=== PATIENT | male | born 1955 | race Caucasian/White ===

== ENCOUNTER 2016-06-05 20:45 | Emergency (ER) | payer SELFPAY ==
[~2016-06-05] VITALS: Ht 182.9 cm; Wt 78.0 kg
[2016-06-05 21:29] VITALS: Ht 182.9 cm; Wt 78.0 kg
[2016-06-05] MEDS ORDERED: KETOROLAC 60 MG INJ IM STA (23:42)
[2016-06-06 00:02] LABS: URINE BLOOD (Dip) POC 3+ (NEGATIVE)
[2016-06-06] MEDS ORDERED: CEFTRIAXONE 1 GM/50 ML (PMX) 50 ML IVPB ONE (00:30)
[2016-06-06] MEDS ORDERED: SOD CHLORIDE 0.9% 1,000 ML IV ONE (01:00)
[2016-06-06] MEDS ORDERED: ACET500C5 PO (01:17)
[2016-06-06] MEDS ORDERED: CIPR500T4 PO (01:17)
[2016-06-06 01:59] VITALS: BP 119/60; PULSE 74; RESP 16; TEMP 98.4
--- NOTE | 2016-06-06 07:51 | ERD ---
ER Documentation Chief Complaint Date/Time DATE: 06/06/16 TIME: 07:42 Chief Complaint blood in urine 3 days with back pain HPI 61-year-old male brought in by his girlfriend complaining of blood in the urine and back pain 4 days. Patient reports subjective fever and chills. He also has dysuria, urinary frequency, and urgency. Denies abdominal pain, vomiting, or diarrhea. Denies history of kidney stones, or other medical history. ROS All systems reviewed and are negative except as per history of present illness. Medications Home Meds Active Scripts Acetaminophen* (Tylophen*) 500 Mg Capsule, 1 CAP PO Q6H Y for PAIN AND OR ELEVATED TEMP, #20 CAP Prov:SHANTANU MATTHEWS. RENAL DIETITIAN 06/06/16 Ciprofloxacin Hcl* (Ciprofloxacin Hcl*) 500 Mg Tablet, 500 MG PO BID for 14 Days , TAB Prov:SHANTANU MATTHEWS. RENAL DIETITIAN 06/06/16 Allergies Allergies: Coded Allergies: No Known Allergy (Unverified , 06/06/16) PMhx/Soc Hx Alcohol Use: Yes Hx Substance Use: No Hx Tobacco Use: Yes Smoking Status: Former smoker Physical Exam Vitals Vital Signs Date Time Temp Pulse Resp B/P Pulse Ox O2 Delivery O2 Flow Rate FiO2 06/06/16 01:59 98.4 74 16 119/60 99 06/05/16 21:29 100.3 82 20 126/67 99 Physical Exam General impression: Well-developed, well-nourished. Alert, oriented, in no acute distress Head: Normocephalic, atraumatic. Eyes: PERRL, EOM normal. Sclerae are normal. Conjunctiva not injected. Neck: Supple, nontender. No lymphadenopathy. No nuchal rigidity. Respiration: Normal respiratory effort. Lungs clear to auscultate bilaterally. No wheezes, rales or rhonchi. Cardiovascular: Regular rate and rhythm. No murmurs or extra heart sounds. Abdomen: Abdomen normal to inspection. Nontender. No masses or organomegaly. Bowel sounds normal. Back: Normal to inspection. No midline spine tenderness. Right CVA tenderness. Neuro: Mental status normal, speech normal. ASSISTANT SALES MANAGER grossly intact. Skin: Normal turgor. No rash or lesions. Psych: Normal mood and affect. Results 24 hrs Laboratory Tests Test 06/06/16 00:03 Bedside Urine pH (LAB) 5.5 Bedside Urine Protein (LAB) 2+ Bedside Urine Glucose (UA) Negative Bedside Urine Ketones (LAB) Negative Bedside Urine Blood 3+ Bedside Urine Nitrite (LAB) Positive Bedside Urine Leukocyte Esterase (L 2+ Current Medications Medications (Trade) Dose Ordered Sig/Raf Route PRN Reason Start Time Stop Time Status Last Admin Dose Admin Ketorolac Tromethamine 60 mg 60 mg ONCE STAT IM 06/05/16 23:42 06/05/16 23:44 DC 06/05/16 23:58 Ceftriaxone Sodium 50 ml @ 100 mls/hr ONCE ONCE IVPB 06/06/16 00:30 06/06/16 00:59 DC 06/06/16 00:26 Sodium Chloride (NS) 1,000 ml @ 1,000 mls/hr Q1H ONCE IV 06/06/16 01:00 06/06/16 01:59 DC 06/06/16 01:10 Procedures/MDM 61-year-old male presented ED urinary symptoms 4 days. Urine dip showed 2+ leukocyte, positive nitrite, 3+ blood, 2+ protein. Patient has a urinary tract infection. Given the patient has right CVA tenderness and fever, I think likely patient has pyelonephritis. Patient given 1 L normal saline bolus, and 1 g Rocephin IV piggyback in the ED. Toradol IM also given to the patient for pain fever. Patient is stable for discharge and outpatient management. Medical decision making shared with patient and family. Education provided to patient and family. Patient and family expressed understanding of the plan. Medications on discharge: Cipro, ibuprofen. Follow-up: Primary care provider in 2-3 days or return to ED if worse. Departure Diagnosis: Primary Impression: Pyelonephritis Condition: Good Patient Instructions: Pyelonephritis, Male (Adult) [facility] Usted se zhu hecho un examen mdico de control que le indica que no est en lazaro condicin que requiera tratamiento urgente en el Departamento de Emergencia. Un estudio ms profundo y el tratamiento de gimenez condicin pueden esperar sin ningn riesgo hasta que usted sea atendida/o en el consultorio de gimenez mdico o lazaro cl margarita. Es responsabilidad suya arreglar lazaro matilda para el seguimiento del dereje. MANEJO DE CONDICIONES NO URGENTES EN EL FUTURO 1) Si usted tiene un mdico de atencin primaria: Usted debera llamar a gimenez mdico de atencin primaria antes de venir al departamento de emergencia. Despus de las horas de consultorio, gimenez doctor o gimenez asociado/a est disponible por telfono. El mdico o enfermero de faiza en el servicio telefnico puede asesorarle por gregor medio para atender el problema, o dereje contrario se puede programar lazaro matilda. 2) Si usted no tiene un mdico de atencin primaria: Llame al mdico o clnica de referencia que aparece abajo chai las horas de consultorio para hacer lazaro matilda para que le vean. CLINICAS: [facility] [phone] [facility] [phone] [facility] [facility] [phone] [facility]. [facility] [phone] [facility]. [place] [phone] [facility]. [phone] Additional Instructions: Llame al doctor MAANA y anuja lazaro MATILDA PARA DENTRO DE 2-3 LINDER.Dgale a la secretaria que nosotros le instruimos hacer esta matilda.Avise o llame si gimenez condicin se empeora antes de la matilda. Regresa aqui si peor o no mejor. SHANTANU MATTHEWS. YOBANY Jun 06, 2016 07:51
== END 2016-06-06 02:00 | disposition home or self-care (01) ==
LOC: FTE 20:45
DX: N12 Tubulo-interstitial nephritis, not specified as acute or chronic (principal); Z87.891 Personal history of nicotine dependence
CPT/HCPCS: 81003; 87086; 96372; 96374; 99284; J0696; J1885; J7030

== ENCOUNTER 2016-12-02 18:15 | Inpatient (IN) | payer MEDICAID ==
[~2016-12-02] VITALS: Ht 177.8 cm; Wt 77.7 kg
[~2016-12-02 18:15] MED LIST: ACET500C5 PO; CIPR500T4 PO
[2016-12-02] MEDS ORDERED: SOD CHLORIDE 0.9% 1,000 ML IV STA (22:48)
[2016-12-02] MEDS ORDERED: HYDROmorphONE 1 MG/ML SYG IV STA (22:48)
[2016-12-02] MEDS ORDERED: ONDANSETRON 4 MG INJ IV STA (22:48)
[2016-12-02] MEDS ORDERED: PIPER-TAZO 3.375 GM IV (PMX) 100 ML IVPB STA (22:50)
[2016-12-02] MEDS ORDERED: CIPROFLOXACIN 400MG/D5W 200 ML IVPB STA (22:50)
[2016-12-02] MEDS ORDERED: IBUPROFEN 800 MG TAB PO ONE (23:00)
[2016-12-02] MEDS ORDERED: ONDANSETRON 4 MG INJ ONE (23:22)
[2016-12-02] MEDS ORDERED: PIPER-TAZO 3.375 GM IV (PMX) 100 ML ONE (23:23)
[2016-12-02] MEDS ORDERED: HYDROmorphONE 1 MG/ML SYG ONE (23:23)
[2016-12-02] MEDS ORDERED: CIPROFLOXACIN 400MG/D5W 200 ML ONE (23:23)
[2016-12-02] MEDS ORDERED: IBUPROFEN 800 MG TAB ONE (23:23)
[2016-12-02 23:54] LABS: BASOPHILS % 0.4 % (0.0-2.0); EOSINOPHILS % 0.2 % (0.0-7.0); HEMATOCRIT 42.7 % (42.0-52.0); HEMOGLOBIN 14.5 g/dl (14.0-18.0); LYMPHOCYTES # 0.7 10^3/ul (0.8-2.9); LYMPHOCYTES % 12.1 % (15.0-51.0); MEAN CORPUSCULAR HEMOGLOBIN 32.4 pg (29.0-33.0); MEAN CORPUSCULAR VOLUME 95.5 fl (82.0-101.0); MEAN PLATELET VOLUME 11.6 fl (7.4-10.4); MONOCYTE # 0.5 10^3/ul (0.3-0.9); MONOCYTES % 9.3 % (0.0-11.0); NEUTROPHIL # 4.4 10^3/ul (1.6-7.5); NEUTROPHILS % 77.6 % (39.0-77.0); PLATELET COUNT 177 10^3/UL (140-415); RED BLOOD COUNT 4.47 10^6/ul (4.70-6.10); RED CELL DISTRIBUTION WIDTH 13.6 % (11.5-14.5); WHITE BLOOD COUNT 5.6 10^3/ul (4.8-10.8)
[2016-12-03] VITALS (12 sets, daily range): BP systolic 93–135; BP diastolic 55–77; PULSE 57–76; RESP 16–20; TEMP 98.8; Ht 177.8 cm; Wt 77.7 kg
[2016-12-03 00:07] LABS: ALBUMIN 4.3 g/dl (3.3-4.9); ALBUMIN/GLOBULIN RATIO 1.1; BILIRUBIN,INDIRECT 0.2 mg/dl (0-1.1); BILIRUBIN,TOTAL 0.2 mg/dl (0.2-1.3); CREATININE 1.31 mg/dl (0.61-1.24); TOTAL PROTEIN 8.2 g/dl (6.1-8.1)
--- NOTE | 2016-12-03 01:01 | ERD ---
ER Documentation Chief Complaint Chief Complaint Fever flank pain HPI This is a 61-year-old male complains of day 2 of fever of 102 with pain in his right flank with mild pain in the left flank. Says he has nausea no vomiting and has had 2 episodes of watery diarrhea. No chest pain cough shortness of breath. He says he has some slight dysuria but no hematuria. Pain is constant dull and nothing makes it worse or better. No radiation ROS All systems reviewed and are negative except as per history of present illness. Medications Home Meds Active Scripts Acetaminophen* (Tylophen*) 500 Mg Capsule, 1 CAP PO Q6H Y for PAIN AND OR ELEVATED TEMP, #20 CAP Prov:SHANTANU MATTHEWS. GROUNDS CLEANER 06/06/16 Discontinued Scripts Ciprofloxacin Hcl* (Ciprofloxacin Hcl*) 500 Mg Tablet, 500 MG PO BID for 14 Days , TAB Prov:SHANTANU MATTHEWS. GROUNDS CLEANER 06/06/16 Allergies Allergies: Coded Allergies: No Known Allergy (Unverified , 12/02/16) PMhx/Soc Medical and Surgical Hx: pt denies Medical Hx, pt denies Surgical Hx Hx Alcohol Use: Yes (occassional) Hx Substance Use: No Hx Tobacco Use: No Smoking Status: Current some day smoker FmHx Family History: No coronary disease Physical Exam Vitals Vital Signs Date Time Temp Pulse Resp B/P Pulse Ox O2 Delivery O2 Flow Rate FiO2 12/03/16 03:36 98.8 67 16 109/68 97 Room Air 12/03/16 01:21 102.6 97 16 102/57 98 Room Air 12/02/16 22:23 92 16 126/62 98 Room Air 12/02/16 19:02 102.4 84 20 132/70 95 Physical Exam Const: Well-developed, well-nourished Head: Atraumatic, normocephalic Eyes: Normal Conjunctiva, PERRLA, EOMI, normal sclera, no nystagmus ENT: Normal External Ears, Nose and Mouth, moist mucus membranes. Neck: Full range of motion. No meningismus, no lymphadenopathy. Resp: Clear to auscultation bilaterally, no wheezing, rhonchi, rales Cardio: Regular rate and rhythm, no murmurs, S1 S2 present Abd: Soft, non tender x 4, non distended. Normal bowel sounds, no guarding or rebound, no pulsitile abdominal masses or bruits Skin: No petechiae or rashes, no ecchymosis , no maculopapular rash Back: Bilateral flank tenderness right greater than left Ext: No cyanosis, or edema, FROM x 4, normal inspection, neurovascularly intact x 4 Neur: Awake and alert, STR 5/5 x 4, sensation intact x 4, no focal findings, cerebellum intact Psych: Normal Mood and Affect Result Diagram: 12/02/16229912/02/162299 Results 24 hrs Laboratory Tests Test 12/02/16 23:00 12/03/16 00:45 White Blood Count 5.610^3/ul Red Blood Count 4.4710^6/ul Hemoglobin 14.5g/dl Hematocrit 42.7% Mean Corpuscular Volume 95.5fl Mean Corpuscular Hemoglobin 32.4pg Mean Corpuscular Hemoglobin Concent 34.0g/dl Red Cell Distribution Width 13.6% Platelet Count 05045^3/UL Mean Platelet Volume 11.6fl Neutrophils % 77.6% Lymphocytes % 12.1% Monocytes % 9.3% Eosinophils % 0.2% Basophils % 0.4% Nucleated Red Blood Cells % 0.0/100WBC Neutrophils # 4.410^3/ul Lymphocytes # 0.710^3/ul Monocytes # 0.510^3/ul Eosinophils # 0.010^3/ul Basophils # 0.010^3/ul Nucleated Red Blood Cells # 0.010^3/ul Sodium Level 139mmol/L Potassium Level 4.0mmol/L Chloride Level 99mmol/L Carbon Dioxide Level 29mmol/L Anion Gap 15 Blood Urea Nitrogen 15mg/dl Creatinine 1.31mg/dl Glucose Level 76mg/dl Calcium Level 9.0mg/dl Total Bilirubin 0.2mg/dl Direct Bilirubin 0.00mg/dl Indirect Bilirubin 0.2mg/dl Aspartate Amino Transf (AST/SGOT) 31IU/L Alanine Aminotransferase (ALT/SGPT) 39IU/L Alkaline Phosphatase 76IU/L Total Protein 8.2g/dl Albumin 4.3g/dl Globulin 3.90g/dl Albumin/Globulin Ratio 1.10 Urine Color YELLOW Urine Clarity SLIGHTLY CLOUDY Urine pH 5.0 Urine Specific [place] 1.027 Urine Ketones NEGATIVEmg/dL Urine Nitrite NEGATIVEmg/dL Urine Bilirubin NEGATIVEmg/dL Urine Urobilinogen NEGATIVEmg/dL Urine Leukocyte Esterase 3+Dorie/ul Urine Microscopic RBC 13/HPF Urine Microscopic WBC 155/HPF Urine Squamous Epithelial Cells FEW/HPF Urine Bacteria FEW/HPF Urine Mucus MODERATE/HPF Urine Hemoglobin NEGATIVEmg/dL Urine Glucose NEGATIVEmg/dL Urine Total Protein 1+mg/dl Current Medications Medications (Trade) Dose Ordered Sig/Raf Route PRN Reason Start Time Stop Time Status Last Admin Dose Admin Sodium Chloride (NS) 1,000 ml @ 1,000 mls/hr Q1H STAT IV 12/02/16 22:48 12/02/16 23:47 DC 12/02/16 23:43 Hydromorphone HCl (Dilaudid) 1 mg ONCE STAT IV 12/02/16 22:48 12/02/16 22:50 DC 12/02/16 23:43 Ondansetron HCl (Zofran Inj) 4 mg ONCE STAT IV 12/02/16 22:48 12/02/16 22:50 DC 12/02/16 23:43 Ibuprofen 800 mg 800 mg ONCE ONCE PO 12/02/16 23:00 12/02/16 23:01 DC 12/02/16 23:44 Piperacillin Sod/ Tazobactam Sod 100 ml @ 200 mls/hr ONCE STAT IVPB 12/02/16 22:50 12/02/16 23:19 DC 12/02/16 23:43 Ciprofloxacin/ Dextrose (Cipro Ivpb) 200 ml @ 200 mls/hr ONCE STAT IVPB 12/02/16 22:50 12/02/16 23:49 DC 12/03/16 00:17 Ondansetron HCl (Zofran Inj) 4 mg STK-MED ONCE .ROUTE 12/02/16 23:22 12/02/16 23:33 DC Ibuprofen (Motrin) 800 mg STK-MED ONCE .ROUTE 12/02/16 23:23 12/02/16 23:33 DC Hydromorphone HCl 1 mg 1 mg STK-MED ONCE .ROUTE 12/02/16 23:23 12/02/16 23:33 DC Piperacillin Sod/ Tazobactam Sod 100 ml @ ud STK-MED ONCE .ROUTE 12/02/16 23:23 12/02/16 23:33 DC Ciprofloxacin/ Dextrose (Cipro Ivpb) 200 ml @ ud STK-MED ONCE .ROUTE 12/02/16 23:23 12/02/16 23:33 DC Acetaminophen 1000 mg 1,000 mg ONCE STAT PO 12/03/16 02:16 12/03/16 02:23 DC 12/03/16 03:03 Sodium Chloride (NS) 1,000 ml @ 1,000 mls/hr Q1H STAT IV 12/03/16 02:44 12/03/16 03:43 DC 12/03/16 03:03 Procedures/MDM CAT scan of the abdomen shows: Bronchiectases in the right lung base, may be some subpleural pulmonary fibrosis otherwise unremarkable CAT scan of the abdomen Patient has a urinary tract infection. He did get blood and urine cultures and received antibiotics. It a 102 fever received 800 mg persistent 102. Will give a gram of Tylenol now The patient is now afebrile with a 98.9 temperature. His blood pressure tends to run the systolic between 90 and 109. But most the time is in the 90s systolic. He says he is feeling much better. In light of this I will admit him to the hospital for borderline low blood pressure. I will send a lactic acid however did not feel he is septic. He does not have an elevated white blood count and appears clinically well. Departure Diagnosis: Primary Impression: Upper urinary tract infection Additional Impression: Fever Fever type: unspecified Qualified Code: R50.9 - Fever, unspecified fever cause Condition: Stable RUSLAN GAGNON DO Dec 03, 2016 01:01
[2016-12-03 02:09] LABS: ADD UMIC YES; UR ASCORBIC ACID NEGATIVE (NEGATIVE); UR BACTERIA FEW /HPF (NONE SEEN); UR BILIRUBIN (Dip) NEGATIVE (NEGATIVE); UR BLOOD (Dip) NEGATIVE (NEGATIVE); UR CLARITY SLIGHTLY CLOUDY (CLEAR); UR COLOR YELLOW (YELLOW); UR GLUCOSE (Dip) NEGATIVE (NEGATIVE); UR KETONES (Dip) NEGATIVE (NEGATIVE); UR LEUKOCYTE ESTERASE (Dip) 3+ Leu/ul (NEGATIVE); UR MUCUS MODERATE /HPF (NONE SEEN); UR NITRITE (Dip) NEGATIVE (NEGATIVE); UR NONSQUAMOUS EPITHELIAL CELL 1 /HPF (NONE SEEN); UR RBC 13 /HPF (0-5); UR SPECIFIC GRAVITY (Dip) 1.027 (1.003-1.030); UR SQUAMOUS EPITHELIAL CELL FEW /HPF (FEW); UR TOTAL PROTEIN (Dip) 1+ mg/dl (NEGATIVE); UR UROBILINOGEN (Dip) NEGATIVE (NEGATIVE)
[2016-12-03] MEDS ORDERED: ACETAMINOPHEN 500 MG TAB PO STA (02:16)
[2016-12-03] MEDS ORDERED: SOD CHLORIDE 0.9% 1,000 ML IV STA (02:44)
[2016-12-03] MEDS ORDERED: ONDANSETRON 4 MG INJ IV PRN ×2 (04:30→08:30)
[2016-12-03] MEDS ORDERED: ACETAMINOPHEN 325 MG TAB PO PRN ×2 (04:30→08:30)
[2016-12-03] MEDS: SOD CHLORIDE 0.9% 1,000 ML IV SCH ×4 (04:54→16:34)
[2016-12-03] MEDS ORDERED: SOD CHLORIDE 0.9% 1,000 ML IV SCH (08:22)
[2016-12-03] MEDS ORDERED: morphine 2 MG INJ IV PRN (08:30)
[2016-12-03] MEDS ORDERED: NACL 0.9% 3 ML SYG IV SCH (08:30)
[2016-12-03] MEDS ORDERED: ALBUTEROL/IPRATROPIUM (NEB) 3 ML AMP HHN PRN (08:30)
--- NOTE | 2016-12-03 08:38 | RADRPT ---
PROCEDURE: CT abdomen and pelvis with. contrast. CLINICAL INDICATION: Abdominal pain. TECHNIQUE: Noncontrast CT examination the abdomen and pelvis, with axial, sagittal and coronal ref ormatted images. CTDI: 8.88 mGy and DLP: 574.52 mGy-cm. COMPARISON: None. FINDINGS: CT abdomen: Bronchiectasis at the midaxillary and posterior medial right lung base. Subpleural pulmonary fibrosi s may be present at the posterior costophrenic angles. Consider dedicated high-resolution CT examina tion the chest for further evaluation. The heart size is mildly enlarged, without pericardial thicke mari or effusion. The liver is normal in size and density without focal mass or intrahepatic biliary dilatation. The spleen is normal in size and homogeneous in density. The stomach is partially collapsed, but is whitney ssly unremarkable. The pancreas as visualized is normal. The gallbladder and biliary tree are unre markable and there is no evidence for biliary dilatation. The adrenal glands are symmetric and norm al. The kidneys are symmetrically unremarkable as well. No renal calculus or obstructive uropathy o r mass lesion is seen. The aorta is of normal caliber. Aortic vascular calcifications are present. There is no retroperit reynolds lymphadenopathy. The erinn hepatis region is clear. The bowel and mesentery, as visualized, are equally unremarkable. CT pelvis: The small bowel loops situated within the pelvis are unremarkable. The pelvic organs are normal. T he pelvic sidewalls and inguinal regions are clear. The sigmoid colon and rectum are all unremarkab le. No mass, lymphadenopathy, or free fluid is seen. No acute inflammation is seen. The appendix is unremarkable. The surrounding osseous structures are remarkable for mild degenerative spondylosis of the spine. Ch ronic pars interarticularis defects seen bilaterally at L5 with mild grade 1 anterolisthesis of L5 o n S1. No osteolytic or osteoblastic lesion is detected. IMPRESSION: 1. Bronchiectasis at the right lung base. 2. There may be changes of subpleural pulmonary fibrosis at the posterior costophrenic angles, and c onsider dedicated none emergent high-resolution CT examination of the chest for further evaluation. 3. Otherwise, no acute process in the abdomen. RPTAT: [facility]U Michael Goodrich Physician Date Time Electronically viewed and signed by Michael Goodrich Physician on 12/03/2016 01:47 RS/
[2016-12-03] MEDS ORDERED: NITROGLYCERIN (SL) 0.4 MG TAB SL PRN (09:00)
--- NOTE | 2016-12-03 09:05 | HP ---
Date/Time of Note Date/Time of Note DATE: 12/03/16 TIME: 08:55 Assessment/Plan VTE Prophylaxis VTE Prophylaxis Intervention: heparin Assessment/Plan Assessment/Plan 1. Sepsis, as evidenced by fever and tachycardia, secondary to UTI -IV antibiotic -IV fluid -Follow-up culture results 2. Chest pain -Need to be ruled out for ACS. First troponin is negative and a EKG was no ST- T wave abnormalities. Will send additional troponins -will obtain a 2D echo -Supplemental oxygen, aspirin with as needed nitro morphine. Given the pulmonary findings, will not initiate a beta-radha. -Chest pain could also have pulmonary etiology. Given chest x-ray findings of pulmonary fibrosis and bronchiectasis, will need to obtain a high-resolution CT for further evaluation, however given elevated creatinine, will wait until kidney function recovers. Pulmonary consult will be placed 3. Bronchiectasis and pulmonary fibrosis -will need to obtain a high-resolution CT for further evaluation, however given elevated creatinine, will wait until kidney function recovers. -Supplemental oxygen, bronchodilators and steroid -Pulmonary consult 4. Presumed DAVIS -IV fluid for now -Nephrology consult in the renal ultrasound as needed 5. History of hypertension -PRN antihypertensives for now since his SBP at times have been in the 90s HPI/ROS Admit Date/Time Admit Date/Time Dec 03, 2016 at 04:17 Hx of Present Illness This is a 61-year-old male with a history of hypertension who presented to the emergency department with a chief complaint of chest pain and cough. Chest pain is pressure-like, located in the mid chest and also left-sided with no radiation. Cough has been dry for the most part, with occasional productive of whitish sputum. Reported chills. He denied shortness of breath, abdominal pain , nausea, vomiting or urinary symptoms. When he presented to the ER, he was febrile with a temperature of 102.4. Labs shows creatinine of 1.31 otherwise CBC and CMP was in acceptable range. Urinalysis consistent with UTI. Chest x-ray showed Bronchiectasis at the right lung base, possible changes of subpleural pulmonary fibrosis at the posterior costophrenic angles. PMH/Family/Social Past Medical History Medical History: hypertension Social History Alcohol Use: occasionally Smoking Status: Current every day smoker Drug Use: none Exam/Review of Systems Vital Signs Vitals Vital Signs Date Time Temp Pulse Resp B/P Pulse Ox O2 Delivery O2 Flow Rate FiO2 12/03/16 08:18 57 12/03/16 07:47 98.3 19 99/61 96 12/03/16 05:23 Room Air Exam Constitutional: other (Appears sleepy and somehow weak.) Head: atraumatic, normocephalic Eyes: EOMI, PERRL Respiratory: diminished breath sounds Cardiovascular: nl pulses, regular rate and rhythm Gastrointestinal: non-tender, soft Extremities: normal pulses Labs Result Diagram: 12/02/16229912/02/16 230 Medications Medications Current Medications Ondansetron HCl (Zofran Inj) 4 mg Q6H PRN IV NAUSEA AND/OR VOMITING; Start at 08:30 Acetaminophen (Tylenol Tab) 650 mg Q6H PRN PO PAIN LEVEL 1-3 OR FEVER; Start 12/03/16 at 08:30 Morphine Sulfate 2 mg 2 mg Q4H PRN IV PAIN LEVEL 7-10; Start 12/03/16 at 08:30 Ceftriaxone Sodium 50 ml @ 100 mls/hr Q12H IVPB ; Start 12/03/16 at 08:30 Sodium Chloride (NS) 1,000 ml @ 100 mls/hr Q10H IV ; Start 12/03/16 at 08:30; Stop 12/04/16 at 15:00 LISET LEMOS MD Dec 03, 2016 09:05
[2016-12-03] MEDS: CEFTRIAXONE 1 GM/50 ML (PMX) 50 ML IVPB SCH ×2 (09:26→20:42)
[2016-12-03] MEDS: ASPIRIN (EC) 81 MG TAB PO SCH (09:30)
[2016-12-03] MEDS: METHYLPREDNISOLONE 125 MG INJ IV SCH (09:30)
[2016-12-03 11:15] LABS: CHOL/HDL RATIO 4.1 RATIO
--- NOTE | 2016-12-03 12:50 | CONS ---
Date/Time of Note Date/Time of Note DATE: 12/03/16 TIME: 12:47 Assessment/Plan Assessment/Plan Additional Assessment/Plan CT abdomen is unremarkable except for changes of bronchiectasis and minimal pleural thickening in lower lobes. Assessment and recommendations; 1. Patient admitted with UTI and sepsis with interval improvement. 2. Patient is a current smoker with bibasilar bronchiectasis with possibly superimposed acute bronchitis. Add Zithromax orally. Add DuoNeb every 6 hours. Continue current supportive care. Consultation Date/Type/Reason Admit Date/Time Dec 03, 2016 at 04:17 Date of Consultation: Dec 03, 2016 Type of Consultation: Pulmonary Reason for Consultation Pulmonary consultation requested for evaluation of bibasilar bronchiectasis. Patient admitted for UTI and sepsis. History of presenting illness; patient is a 61-year-old male who came into the emergency room today with complaints of fever and chills. Upon evaluation patient was diagnosed with UTI. Patient also been complaining of scant cough without any wheezing. But does complain of very little white sputum production. Complains of minimal dyspnea on exertion. Patient denies any abdominal pain, nausea or vomiting. Upon evaluation a CT of the abdomen was done which included lower cuts of the chest which is showing bibasilar mild pleural fibrosis as well as lower lobe bronchiectasis. Past medical history; unremarkable. Medications; reviewed. Allergies; none. Social history; patient is a current smoker. Family history; noncontributory. Occupational history; patient is on disability. Review of systems; denies any headache, visual changes, seizures, sinus symptoms. Denies any chest pain. Complains of cough with scant sputum production. Denies any hemoptysis. Patient complains of fever and chills with interval improvement. Denies any melena, hematochezia. Complains of burning urination. Denies any edema, orthopnea. Denies any skin changes. General exam; middle-aged male, awake alert, currently in no distress. Past Medical History Medical History: hypertension Social History Alcohol Use: occasionally Smoking Status: Current every day smoker Drug Use: none Exam/Review of Systems Vital Signs Vitals Vital Signs Date Time Temp Pulse Resp B/P Pulse Ox O2 Delivery O2 Flow Rate FiO2 12/03/16 12:11 66 12/03/16 11:35 98.4 19 118/66 98 12/03/16 05:23 Room Air Exam HEENT exam; supple neck, no JVD. No lymphadenopathy. Midline trachea. No thyromegaly. Pharynx is clear. Patient does have carious teeth. Pupils are midsize and reactive to light. Chest exam; diminished but clear breath sound. S1-S2 audible, no murmurs. Regular rhythm. Abdomen exam; soft, nontender. No organomegaly. Bowel sounds audible. Extremity exam; no peripheral edema. No clubbing. Pulses 2+ bilaterally. ENVIRONMENTAL HEALTH AND SAFETY LEADER exam; no focal deficit. Results Result Diagram: 12/02/160 12/02/160 Results 24 hrs Laboratory Tests Test 12/02/16 23:00 12/03/16 00:45 12/03/16 04:15 12/03/16 10:16 White Blood Count 5.6 Red Blood Count 4.47 L Hemoglobin 14.5 Hematocrit 42.7 Mean Corpuscular Volume 95.5 Mean Corpuscular Hemoglobin 32.4 Mean Corpuscular Hemoglobin Concent 34.0 Red Cell Distribution Width 13.6 Platelet Count 177 Mean Platelet Volume 11.6 H Neutrophils % 77.6 H Lymphocytes % 12.1 L Monocytes % 9.3 Eosinophils % 0.2 Basophils % 0.4 Nucleated Red Blood Cells % 0.0 Neutrophils # 4.4 Lymphocytes # 0.7 L Monocytes # 0.5 Eosinophils # 0.0 Basophils # 0.0 Nucleated Red Blood Cells # 0.0 Sodium Level 139 Potassium Level 4.0 Chloride Level 99 Carbon Dioxide Level 29 Anion Gap 15 Blood Urea Nitrogen 15 Creatinine 1.31 H Glucose Level 76 Calcium Level 9.0 Total Bilirubin 0.2 Direct Bilirubin 0.00 Indirect Bilirubin 0.2 Aspartate Amino Transf (AST/SGOT) 31 Alanine Aminotransferase (ALT/SGPT) 39 Alkaline Phosphatase 76 Total Protein 8.2 H Albumin 4.3 Globulin 3.90 H Albumin/Globulin Ratio 1.10 Urine Color YELLOW Urine Clarity SLIGHTLY CLOUDY A Urine pH 5.0 Urine Specific [place] 1.027 Urine Ketones NEGATIVE Urine Nitrite NEGATIVE Urine Bilirubin NEGATIVE Urine Urobilinogen NEGATIVE Urine Leukocyte Esterase 3+ H Urine Microscopic RBC 13 H Urine Microscopic WBC 155 H Urine Squamous Epithelial Cells FEW Urine Bacteria FEW A Urine Mucus MODERATE Urine Hemoglobin NEGATIVE Urine Glucose NEGATIVE Urine Total Protein 1+ H Lactic Acid Level 1.0 Hemoglobin A1c 5.4 Test 12/03/16 10:17 Triglycerides Level 99 Cholesterol Level 151 LDL Cholesterol, Calculated 95 HDL Cholesterol 36 Cholesterol/HDL Ratio 4.1 Thyroid Stimulating Hormone (TSH) Pending Medications Medications Current Medications Ondansetron HCl (Zofran Inj) 4 mg Q6H PRN IV NAUSEA AND/OR VOMITING; Start at 08:30 Acetaminophen (Tylenol Tab) 650 mg Q6H PRN PO PAIN LEVEL 1-3 OR FEVER; Start 12/03/16 at 08:30 Morphine Sulfate 2 mg 2 mg Q4H PRN IV PAIN LEVEL 7-10; Start 12/03/16 at 08:30 Ceftriaxone Sodium 50 ml @ 100 mls/hr Q12H IVPB Last administered on 09:26; Admin Dose 100 MLS/HR; Start 12/03/16 at 08:30 Sodium Chloride (NS) 1,000 ml @ 100 mls/hr Q10H IV Last administered on 09:05; Admin Dose 100 MLS/HR; Start 12/03/16 at 08:30; Stop 12/04/16 at 15:00 Aspirin (Halfprin) 81 mg DAILY PO Last administered on 12/03/16 09:30; Admin Dose 81 MG; Start 12/03/16 at 09:00 Nitroglycerin (Nitroglycerin (Sl Tab) 0.4 Mg) 1 tab Q5M PRN SL ANGINA; Start 12/03/16 at 09:00 Methylprednisolone Sodium Succinate (Solu-Medrol) 80 mg DAILY IV Last administered on 12/03/16 09:30; Admin Dose 80 MG; Start 12/03/16 at 09:30 Influenza Virus Vaccine (Fluzone) 0.5 ml ONCE ONCE IM* ; Start 12/04/16 at 12: 00; Stop 12/04/16 at 12:01 JOSUE CASTREJON Dec 03, 2016 12:50
--- NOTE | 2016-12-03 13:49 | RADRPT ---
Echocardiogram Report Patient Name: DIANE HESTER Gender: Male Date: 1955 Study Date: 03-Dec-2016 Shake Backboard Notcher: Jadon Aguayo [facility] Location: [id number] Ref. Physician: LISET LEMOS Quality: Good Procedures: Transthoracic echocardiogram with complete 2D, M-Mode, and doppler examination. Indications: Chest Pain. 2D/M Mode Doppler Measurement Value Normal Ranges Measurement Value Normal Ranges LVIDd 2D 4.4 3.5 - 5.6 cm AV Peak Salvador 1.3 m/sec LVIDs 2D 2.8 2.1 - 4.1 cm AV Peak PG 7.0 mmHg FS 2D 36.6 % LVOT Peak Salvador 1.2 m/sec LVPWd 2D 1.1 0.6 - 1.1 cm LVOT Peak PG 5.0 mmHg IVSd 2D 1.3 0.6 - 1.1 cm MV E Peak Salvador 0.8 m/sec IVS/LVPW 2D 1.2 MV A Peak Salvador 0.7 m/sec AoR Diam 2D 3.0 2.0 - 3.7 cm MV E/A 1.1 LA/Ao 2D 1 0 - 1 MV Decel Time 261 msec EDV 2D 83.5 cm3 MV E/A 1.1 ESV 2D 21.3 cm3 TR Peak Salvador 2.3 m/sec LA Dimen 2D 3.5 2.3 - 4.0 cm TR Peak PG 21.0 mmHg RVSP 24.0 mmHg Findings Left Ventricle: Normal left ventricular systolic function. Normal left ventricular cavity size. Normal left ventricular wall thickness. Ejection fraction is visually estimated at 60 %. Tissue Doppler/Mitral Doppler indices are within normal limits. Right Ventricle: Normal right ventricular size. Normal right ventricular systolic function. Left Atrium: The left atrium is normal in size. Right Atrium: The right atrium is normal in size. Mitral Valve: Mitral valve leaflets appear mildly thickened. Mild mitral annular calcification. Trace mitral regurgitation. Aortic Valve: Normal appearance of the aortic valve. No significant aortic stenosis or insufficiency. Tricuspid Valve: Normal appearance of the tricuspid valve. Estimated peak PA systolic pressure 24 mmHg. There is mild tricuspid regurgitation. Pulmonic Valve: Pulmonic valve not well visualized. Pericardium: Normal pericardium with no significant pericardial effusion. Aorta: Normal aortic root. IVC: Normal size and normal respiratory collapse consistent with normal right atrial pressure. Conclusions 1.The left ventricle is normal in size and systolic function. 2.Estimated left ventricular ejection fraction of 60%. Electronically Signed By: Anish Dejesus 03-Dec-2016 13:49:09 -0700 Patient Name: DIANE HESTER Study Date: 03-Dec-2016 [id number]
[2016-12-03 13:57] LABS: THYROID STIMULATING HORMONE 0.128 MIU/L (0.465-4.680)
[2016-12-03] MEDS: ALBUTEROL/IPRATROPIUM (NEB) 3 ML AMP HHN SCH ×2 (14:00→19:39)
[2016-12-03] MEDS: AZITHROMYCIN 250 MG TAB PO SCH (16:35)
[2016-12-04] VITALS (11 sets, daily range): BP systolic 118–134; BP diastolic 69–80; PULSE 62–72; RESP 16–20
[2016-12-04] MEDS: ALBUTEROL/IPRATROPIUM (NEB) 3 ML AMP HHN SCH ×4 (01:22→19:57)
[2016-12-04] MEDS: SOD CHLORIDE 0.9% 1,000 ML IV SCH ×2 (05:28→14:30)
[2016-12-04] MEDS: CEFTRIAXONE 1 GM/50 ML (PMX) 50 ML IVPB SCH ×2 (08:14→20:56)
[2016-12-04] MEDS: ASPIRIN (EC) 81 MG TAB PO SCH (08:15)
[2016-12-04] MEDS: METHYLPREDNISOLONE 125 MG INJ IV SCH (08:15)
[2016-12-04] MEDS: AZITHROMYCIN 250 MG TAB PO SCH (08:15)
[2016-12-04 08:32] LABS: BASOPHILS % 0.2 % (0.0-2.0); HEMATOCRIT 38.3 % (42.0-52.0); HEMOGLOBIN 12.7 g/dl (14.0-18.0); LYMPHOCYTES % 20.4 % (15.0-51.0); MEAN CORPUSCULAR HEMOGLOBIN 31.3 pg (29.0-33.0); MEAN CORPUSCULAR HGB CONC 33.2 g/dl (32.0-37.0); MEAN CORPUSCULAR VOLUME 94.3 fl (82.0-101.0); MEAN PLATELET VOLUME 11.2 fl (7.4-10.4); MONOCYTE # 0.3 10^3/ul (0.3-0.9); MONOCYTES % 5.7 % (0.0-11.0); NEUTROPHIL # 3.6 10^3/ul (1.6-7.5); NEUTROPHILS % 73.5 % (39.0-77.0); PLATELET COUNT 135 10^3/UL (140-415); RED BLOOD COUNT 4.06 10^6/ul (4.70-6.10); RED CELL DISTRIBUTION WIDTH 13.2 % (11.5-14.5); WHITE BLOOD COUNT 4.9 10^3/ul (4.8-10.8)
[2016-12-04 09:11] LABS: ALBUMIN 3.1 g/dl (3.3-4.9); ALBUMIN/GLOBULIN RATIO 0.96; CALCIUM 8.4 mg/dl (8.4-10.2); CREATININE 0.86 mg/dl (0.61-1.24); MAGNESIUM 1.8 mg/dl (1.7-2.5); POTASSIUM 3.7 mmol/L (3.5-5.1); TOTAL PROTEIN 6.3 g/dl (6.1-8.1)
--- NOTE | 2016-12-04 11:26 | CONS ---
Date/Time of Note Date/Time of Note DATE: 12/04/16 TIME: 11:22 Consult Date/Type/Reason Admit Date/Time Dec 03, 2016 at 04:17 Initial Consult Date 12/03/16 Type of Consultation: Internal medicine Subjective Patient comfortable this morning. Mild cough but no dyspnea. Objective Vital Signs Date Time Temp Pulse Resp B/P Pulse Ox O2 Delivery O2 Flow Rate FiO2 12/04/16 08:45 71 12/04/16 08:21 21 12/04/16 08:21 20 12/04/16 07:33 98.0 126/69 98 12/03/16 05:23 Room Air Intake and Output 12/03/16 12/03/16 12/04/16 15:00 23:00 07:00 Intake Total 1900 ml 700 ml Output Total 1200 ml 1450 ml Balance 700 ml -750 ml Exam GENERAL: Well-nourished well developed gentleman comfortable at rest no acute distress VITAL SIGNS: per chart NECK: Supple. No JVD or lymphadenopathy. CARDIAC EXAM: S1, S2. No added sounds or murmurs. CHEST: clear bilaterally, No added sounds, rales or wheezes ABDOMEN: Soft, nontender. No guarding or rebound. EXTREMITIES: No cyanosis, clubbing or edema. NEUROLOGIC: Generalized weakness. No focal deficits. Results/Medications Result Diagram: 12/04/16 0750 12/04/16 0750 Results 24 hrs Laboratory Tests Test 12/03/16 11:44 12/04/16 07:50 Lactic Acid Level 1.6 White Blood Count 4.9 Red Blood Count 4.06 L Hemoglobin 12.7 L Hematocrit 38.3 L Mean Corpuscular Volume 94.3 Mean Corpuscular Hemoglobin 31.3 Mean Corpuscular Hemoglobin Concent 33.2 Red Cell Distribution Width 13.2 Platelet Count 135 #L Mean Platelet Volume 11.2 H Neutrophils % 73.5 Lymphocytes % 20.4 Monocytes % 5.7 Eosinophils % 0.0 Basophils % 0.2 Nucleated Red Blood Cells % 0.0 Neutrophils # 3.6 Lymphocytes # 1.0 Monocytes # 0.3 Eosinophils # 0.0 Basophils # 0.0 Nucleated Red Blood Cells # 0.0 Sodium Level 141 Potassium Level 3.7 Chloride Level 108 Carbon Dioxide Level 25 Anion Gap 12 Blood Urea Nitrogen 15 Creatinine 0.86 Glucose Level 144 # Calcium Level 8.4 Magnesium Level 1.8 Total Bilirubin 0.0 L Direct Bilirubin 0.00 Indirect Bilirubin 0.0 Aspartate Amino Transf (AST/SGOT) 40 Alanine Aminotransferase (ALT/SGPT) 49 Alkaline Phosphatase 72 Total Protein 6.3 # Albumin 3.1 #L Globulin 3.20 Albumin/Globulin Ratio 0.96 Medications Current Medications Ondansetron HCl (Zofran Inj) 4 mg Q6H PRN IV NAUSEA AND/OR VOMITING; Start at 08:30 Acetaminophen (Tylenol Tab) 650 mg Q6H PRN PO PAIN LEVEL 1-3 OR FEVER; Start 12/03/16 at 08:30 Morphine Sulfate 2 mg 2 mg Q4H PRN IV PAIN LEVEL 7-10; Start 12/03/16 at 08:30 Ceftriaxone Sodium 50 ml @ 100 mls/hr Q12H IVPB Last administered on 08:14; Admin Dose 100 MLS/HR; Start 12/03/16 at 08:30 Sodium Chloride (NS) 1,000 ml @ 100 mls/hr Q10H IV Last administered on 05:28; Admin Dose 100 MLS/HR; Start 12/03/16 at 08:30; Stop 12/04/16 at 15:00 Aspirin (Halfprin) 81 mg DAILY PO Last administered on 12/04/16 08:15; Admin Dose 81 MG; Start 12/03/16 at 09:00 Nitroglycerin (Nitroglycerin (Sl Tab) 0.4 Mg) 1 tab Q5M PRN SL ANGINA; Start 12/03/16 at 09:00 Methylprednisolone Sodium Succinate (Solu-Medrol) 80 mg DAILY IV Last administered on 12/04/16 08:15; Admin Dose 80 MG; Start 12/03/16 at 09:30 Influenza Virus Vaccine (Fluzone) 0.5 ml ONCE ONCE IM* ; Start 12/04/16 at 12: 00; Stop 12/04/16 at 12:01 Azithromycin (Zithromax) 500 mg DAILY PO Last administered on 12/04/16 08:15 ; Admin Dose 500 MG; Start 12/03/16 at 13:00 Assessment/Plan Chief Complaint/Hosp Course Assessment 1. Bronchiectasis with likely acute exacerbation 2. Renal insufficiency resolved History of tobacco use Plan . Continue antibiotics DC steroids Discharge tomorrow. Problems: MILTON MISTRY MD, [facility] Dec 04, 2016 11:26
[2016-12-04] MEDS ORDERED: INFLUENZA VIRUS VACCINE 0.5 ML SYG IM* ONE (12:00)
[2016-12-05] VITALS (7 sets, daily range): BP systolic 104–123; BP diastolic 57–73; PULSE 60–74; RESP 18
[2016-12-05] MEDS: ALBUTEROL/IPRATROPIUM (NEB) 3 ML AMP HHN SCH ×2 (01:40→08:07)
[2016-12-05] MEDS: AZITHROMYCIN 250 MG TAB PO SCH (09:05)
[2016-12-05] MEDS: CEFTRIAXONE 1 GM/50 ML (PMX) 50 ML IVPB SCH (09:05)
[2016-12-05] MEDS: METHYLPREDNISOLONE 125 MG INJ IV SCH (09:05)
[2016-12-05] MEDS: ASPIRIN (EC) 81 MG TAB PO SCH (09:05)
[2016-12-05] MEDS ORDERED: AZIT250T6 PO (11:31)
[2016-12-05] MEDS ORDERED: ASPI-664 PO (11:31)
[2016-12-05] MEDS ORDERED: ALBU18HF INHALATION (11:31)
[2016-12-05] MEDS ORDERED: CIPR500T4 PO (11:32)
--- NOTE | 2016-12-05 11:33 | PDOCDIS ---
Discharge Instructions DIAGNOSIS Discharge Diagnosis 1. Sepsis, as evidenced by fever and tachycardia, secondary to UTI 2. Chest pain 3. Bronchiectasis and pulmonary fibrosis 4. Presumed DAVIS 5. History of hypertension HOME CARE INSTRUCTIONS: Diet Instructions: Low Fat /Cholesterol FOLLOW UP/APPOINTMENTS Follow-up Plan 1. Follow up with your primary care provider in one week DIVYA HAMMOND Dec 05, 2016 11:33
[2016-12-05] MEDS ORDERED: TRAM50TA2 PO (12:21)
== END 2016-12-05 12:59 | disposition home or self-care (01) | DRG 872 ==
LOC: E/R 18:15 → TEL 12-03 04:17
PROVIDERS: ADMIT Internal Medicine; ATTEND Internal Medicine
DX: A41.9 Sepsis, unspecified organism (principal); N17.9 Acute kidney failure, unspecified; J47.0 Bronchiectasis with acute lower respiratory infection; J47.1 Bronchiectasis with (acute) exacerbation; N39.0 Urinary tract infection, site not specified; J84.10 Pulmonary fibrosis, unspecified; F17.210 Nicotine dependence, cigarettes, uncomplicated; R50.9 Fever, unspecified; I10 Essential (primary) hypertension
CPT/HCPCS: 36415; 74176; 80053; 80061; 81001; 83036; 83605; 83735; 84443; 85025; 87040; 87086; 90686; 93306; 94640; 94664; 96374; 96375; J0696; J0744; J1170; J2405; J2543; J2930; J7030

== ENCOUNTER 2017-03-04 09:02 | Emergency (ER) | END 2017-03-04 11:02 | disposition home or self-care (01) ==